=== PATIENT | male | born 1995 | race Caucasian/White ===

== ENCOUNTER 2017-10-03 21:46 | Emergency (ER) | payer SELFPAY ==
--- NOTE | 2017-10-03 21:55 | ER Report ---
History and Physical Time Seen By MD: 21:55 HPI/ROS CHIEF COMPLAINT: Fall with elbow injury HISTORY OF PRESENT ILLNESS: This is a 22-year-old male. He jumped over a railing about 10 feet up and landed with outstretched arm. He now has severe elbow pain on the left elbow with deformity. He also has abrasions on his right lower leg, left wrist, left forehead. Very slight scratches on the left elbow. No head injury or loss of consciousness. He has normal sensation in the hand and fingers. He can move the hand and fingers as well. REVIEW OF SYSTEMS: Constitutional: No weakness. Eyes: No visual changes or eye pain. ENT: No dental or oral trauma. Respiratory: No chest wall pain, no shortness of breath. Cardiac: No palpitations. Gastrointestinal: No abdominal pain, no vomiting. Musculoskeletal: As above. Skin: No lacerations. Neurological: No headache. Allergies: Coded Allergies: No Known Drug Allergies (Unverified , 10/03/17) Home Meds Active Scripts Hydrocodone Bit/Acetaminophen (HYDROCODON-ACETAMINOPHEN 5-325) 1 Each Tablet, 1 EACH PO Q4H Y for PAIN, #12 TAB 0 Refills Prov:VALERIE PASTOR MD 10/04/17 Reviewed Nurses Notes: Yes Constitutional Vital Sign - Last 24 Hours 10/03/17 10/03/17 10/03/17 10/03/17 21:46 21:51 21:57 22:01 Temp 98.0 Pulse ??? 71 63 Resp 16 B/P (MAP) 138/93 (108) 138/93 Pulse Ox 96 96 O2 Delivery Room Air 10/03/17 10/03/17 10/03/17 10/03/17 22:16 22:31 22:44 22:46 Pulse ??? 73 77 Resp 9 B/P (MAP) 159/90 (113) Pulse Ox 96 97 10/03/17 10/03/17 10/03/17 10/03/17 22:48 22:52 22:56 23:00 B/P (MAP) 158/104 (122) 155/88 (110) 156/99 (118) 176/103 (127) 10/03/17 10/03/17 10/03/17 10/03/17 23:01 23:04 23:08 23:12 Pulse 73 Resp 8 B/P (MAP) 164/103 (123) 158/93 (114) 169/102 (124) Pulse Ox 99 10/03/17 10/03/17 10/03/17 10/03/17 23:17 23:20 23:24 23:28 Pulse 81 Resp 12 B/P (MAP) 135/120 (125) 174/95 (121) 166/86 (112) Pulse Ox 98 10/03/17 10/03/17 10/03/17 10/03/17 23:32 23:36 23:40 23:44 Pulse 72 Resp 9 B/P (MAP) 172/90 (117) 152/98 (116) 155/94 (114) 172/106 (128) Pulse Ox 91 10/03/17 10/04/17 23:47 00:25 Temp 97.9 Pulse 70 Resp 10 Pulse Ox 97 Physical Exam Gen.: Alert, no acute distress. Musculoskeletal: Swelling and deformity over the left elbow. Holding the left upper extremity with his right arm to avoid any movement of the left extremity. He can move the hand and fingers without major problem. Pain with any movement of the elbow. No pain in the shoulder. Cardiovascular: Normal pulses in the wrist and normal capillary refill in the fingers. Neuro: Normal sensation. No defects of motor or sensory noted. Skin: Very mild scrapes on the elbow, no lacerations. Also has a abrasion to the left wrist, left forehead, the right lower extremities. Medical Decision Making EKG/Imaging Imaging ELBOW 3 VIEW LEFT COMPARISONS: None. ADDITIONAL PERTINENT HISTORY: Elbow pain FINDINGS: Osseous structures: There is a distracted fracture involving the left radial head. Comminuted fracture involving the proximal aspects of the left ulna including a fracture through the base of the olecranon. No evidence of fracture involving the distal aspects of the humerus. Joint spaces: Posterior dislocation about the left elbow. Surrounding soft tissues: Soft tissue swelling about the left elbow. IMPRESSION: 1. Comminuted proximal ulnar fracture with a fracture extending through the base of the olecranon. 2. Left radial head fracture. 3. Posterior dislocation about the left elbow. Report Dictated By: Fatuma Jean MD at 10/03/2017 10:47 PM WRIST LEFT 2 VIEW COMPARISONS: None. ADDITIONAL PERTINENT HISTORY: Left arm injury FINDINGS: Osseous structures: Negative. Joint spaces: Negative. Surrounding soft tissues: Negative. IMPRESSION: Normal views of the left wrist. Report Dictated By: Fatuma Jean MD at 10/03/2017 10:45 PM ELBOW 2 VIEW LEFT COMPARISONS: Views of the left elbow dated earlier same day. ADDITIONAL PERTINENT HISTORY: Post reduction films. FINDINGS: Osseous structures: Continued findings of a radial head fracture as well as a comminuted fracture involving the proximal aspects of the left ulna with a fracture extending through the base of the olecranon. Joint spaces: Improved positioning of the radial head in relation to the distal humerus but continued posterior dislocation about the left elbow. Surrounding soft tissues: Continued diffuse soft tissue swelling about the left elbow. IMPRESSION: 1. Continued findings of a fracture or dislocation about the left elbow with slight interval improvement in alignment from previous exam. 2. No new findings from previous exam. Report Dictated By: Fatuma Jean MD at 10/03/2017 11:20 PM ED Course/Re-evaluation Clinical Indication for ER IV: Hydration, IV Access ED Course Initially, we did x-rays to demonstrate the fracture and dislocation of the left elbow. This is a closed fracture. Attempted reduction under sedation as noted below. Reduction was incomplete. Improved position but not back to anatomic position. Splinted after the attempted reduction. Initially the patient 's neurovascular exam was intact. After splint application, the patient's fingers started to have some paresthesias in the fifth finger went numb with paresthesias in the fourth finger. He had capillary refill that continued to be intact. I called and spoke with orthopedic surgery, Dr. Colby and reviewed the case with him. After our discussion, he recommended that the patient needs to follow- up tomorrow for surgery. He does not do this surgery and recommended follow-up with or Dr. Anderson. However, Dr. Bacon is out of town and he was not sure if Dr. Anderson was here in town or at an outreach clinic. We could keep the splint on, treat pain, and have him follow-up tomorrow at [facility]. On further evaluation, the patient had worsening numbness and then could not move the fifth finger. Because of this worsening on evaluation after the splint , I elected to call [facility] because I was not sure if Dr. Anderson would be available based on my conversation with Dr. Colby. I called and spoke initially with Dr. Davalos on the trauma service, and then spoke with Dr. Tang, orthopedic surgery. He suggested removing the sugar tong splint to see if he could relieve some pressure from the ulnar nerve. If that did not help, then transferring the patient by private vehicle to the [facility] for surgery tomorrow. If the numbness improved, then the patient could follow-up as an outpatient later in the morning. I went and spoke with the patient after these calls. He said that the sensation and return to his fingers and he could move them now. We talked about removing part of the splint however he is comfortable with the way the splint is now and his exam now is normal neurovascularly. The patient will return home and we will provide pain control. He has the contact information for Dr. Anderson at [facility] as well as for Dr. Tang at [facility]. He is going to watch for any worsening of his sensation, motor function , or capillary refill, and we discussed this at length. Should he have any further problems, he will call us. He can return to the ER here or he can go to [facility] as well, I just asked if he would call me so if he was going to [facility] we could call them and let them know. Procedure Procedure: Procedural sedation. A pre-sedation evaluation was completed on the patient. Patient is an appropriate candidate for procedural sedation. The risks of the sedation were discussed with the patient. A time out was completed. The patient was reevaluated immediately prior to initiation of sedation. The patient was sedated with propofol. The patient was monitored with continuous pulse oximetry and awake overnight monitor. There were no complications and no significant hypoxemia. I remained at the bedside for the sedation. The total time I spent in the procedural sedation was 15 minutes. Post sedation evaluation: Patient was alert and cooperative, hemodynamically stable with appropriate respiratory status, temperature and pain control without ongoing nausea and vomiting. Procedure: Fracture and dislocation of the left elbow attempted reduction: The elbow was reduced and splinted with a posterior and sugar tong half cast. Post reduction the patient's neurovascular exam was initially normal and then showed some numbness and weakness, see above. Post reduction x-ray demonstrates some improvement towards anatomic position but was incomplete. The procedure was performed by myself. Decision to Disposition Date: Oct 04, 2017 Decision to Disposition Time: 00:10 Depart Departure Latest Vital Signs Vital Signs Date Time Temp Pulse Resp B/P (MAP) Pulse Ox O2 Delivery O2 Flow Rate FiO2 10/04/17 00:25 97.9 10/03/17 23:47 70 10 97 10/03/17 23:44 172/106 (128) 10/03/17 21:57 Room Air Impression: Primary Impression: Closed olecranon fracture Additional Impression: Radial head fracture, closed Condition: Improved Disposition: HOME OR SELF-CARE Referrals: FATUMA ANDERSON MD New Scripts Hydrocodone Bit/Acetaminophen (HYDROCODON-ACETAMINOPHEN 5-325) 1 Each Tablet 1 EACH PO Q4H Y for PAIN, #12 TAB 0 Refills Prov: VALERIE PASTOR MD 10/04/17 Patient Instructions: Elbow Fracture (ED) Additional Instructions: Your elbow was fractured and dislocated tonight. It will need to surgically repaired. Keep the arm in the sling and splint tonight. You can apply ice over the elbow every hour for about 10-15 minutes. Take Ibuprofen 200mg over the counter tablets, take 4 every 8 hours as needed for pain. Lortab 5/325, one every 4 hours as needed for severe pain. You can take both of these medicines together, no interactions. Keep the arm/elbow elevated tonight. Watch for numbness of the hand or fingers, inability to move the hand or fingers , or loss of blood flow into the fingers or fingertips. If you note any of these problems, please return to the ER for further treatment. You can follow-up with [facility] in the morning to see if Dr. Anderson is available. Alternatively you can call [facility] to follow-up with Dr. Tang. Their number is . Please let them know that you were seen in the ER tonight and that we spoke with the orthopedic surgeon hand stonecutter who indicated the need to follow-up on Saturday. Problem Qualifiers Primary Impression: Closed olecranon fracture Encounter type: initial encounter Laterality: left Qualified Codes: S52.022A - Displaced fracture of olecranon process without intraarticular extension of left ulna, initial encounter for closed fracture Additional Impression: Radial head fracture, closed Encounter type: initial encounter Fracture alignment: displaced Laterality : left Qualified Codes: S52.122A - Displaced fracture of head of left radius , initial encounter for closed fracture VALERIE PASTOR MD Oct 03, 2017 21:55
[2017-10-03] MEDS ORDERED: fentaNYL CITR 100 MCG/2 ML AMP IVP ONE ×2 (22:00→23:10)
[2017-10-03] MEDS ORDERED: PROPOFOL EMUL 10MG/ML 20 ML VL IVP ONE (22:30)
--- NOTE | 2017-10-03 22:49 | RADIOLOGY IMAGING REPORT ---
FAC[place] [facility] [place]IENT NAME: Srinivasa Gupta : 1995 MR: [id number] V: [id number] EXAM DATE: ORDERING PHYSICIAN: VALERIE PASTOR TECHNOLOGIST: Location: [facility] - [place] Patient: Srinivasa Gupta : 1995 Visit/Account:[id number] Date of Sevice: 10/03/2017 WRIST LEFT 2 VIEW COMPARISONS: None. ADDITIONAL PERTINENT HISTORY: Left arm injury FINDINGS: Osseous structures: Negative. Joint spaces: Negative. Surrounding soft tissues: Negative. IMPRESSION: Normal views of the left wrist. Report Dictated By: Dixon Jean MD at 10/03/2017 10:45 PM Report E-Signed By: Dixon Jean MD at 10/03/2017 10:46 PM WSN:[id number]
--- NOTE | 2017-10-03 22:52 | RADIOLOGY IMAGING REPORT ---
FACILITY: [facility] PATIENT NAME: Srinivasa Gupta : 1995 MR: [id number] V: [id number] EXAM DATE: ORDERING PHYSICIAN: VALERIE PASTOR TECHNOLOGIST: Location: [facility] - [place] Patient: Srinivasa Gupta : 1995 Visit/Account:[id number] Date of Sevice: 10/03/2017 ELBOW 3 VIEW LEFT COMPARISONS: None. ADDITIONAL PERTINENT HISTORY: Elbow pain FINDINGS: Osseous structures: There is a distracted fracture involving the left radial head. Comminuted fractur e involving the proximal aspects of the left ulna including a fracture through the base of the olecra non. No evidence of fracture involving the distal aspects of the humerus. Joint spaces: Posterior dislocation about the left elbow. Surrounding soft tissues: Soft tissue swelling about the left elbow. IMPRESSION: 1. Comminuted proximal ulnar fracture with a fracture extending through the base of the olecranon. 2. Left radial head fracture. 3. Posterior dislocation about the left elbow. Report Dictated By: Dixon Jean MD at 10/03/2017 10:47 PM Report E-Signed By: Dixon Jean MD at 10/03/2017 10:49 PM WSN:[id number]
--- NOTE | 2017-10-03 23:24 | RADIOLOGY IMAGING REPORT ---
FACILITY: [facility] PATIENT NAME: Srinivasa Gupta : 1995 MR: [id number] V: [id number] EXAM DATE: ORDERING PHYSICIAN: VALERIE PASTOR TECHNOLOGIST: Location: [facility] Patient: Srinivasa Gupta : 1995 Visit/Account:[id number] Date of Sevice: 10/03/2017 ELBOW 2 VIEW LEFT COMPARISONS: Views of the left elbow dated earlier same day. ADDITIONAL PERTINENT HISTORY: Post reduction films. FINDINGS: Osseous structures: Continued findings of a radial head fracture as well as a comminuted fracture inv olving the proximal aspects of the left ulna with a fracture extending through the base of the olecra non. Joint spaces: Improved positioning of the radial head in relation to the distal humerus but continued posterior dislocation about the left elbow. Surrounding soft tissues: Continued diffuse soft tissue swelling about the left elbow. IMPRESSION: 1. Continued findings of a fracture or dislocation about the left elbow with slight interval improvem ent in alignment from previous exam. 2. No new findings from previous exam. Report Dictated By: Dixon Jean MD at 10/03/2017 11:20 PM Report E-Signed By: Dixon Jean MD at 10/03/2017 11:22 PM WSN:[id number]
[2017-10-03 23:44] VITALS: BP 172/106
[2017-10-04] MEDS ORDERED: IBUPROFEN 800 MG TAB PO ONE (00:10)
[2017-10-04] MEDS ORDERED: ACET/HYDROC 5/325MG TH ER ONLY 2 TAB/BOTTLE PO ONE (00:10)
[2017-10-04] MEDS ORDERED: APAP/HYDROCODONE 325/5 TAB PO ONE (00:10)
[2017-10-04] MEDS ORDERED: LOR5/325 PO (00:17)
[2017-10-04] MEDS ORDERED: NS(*) 0.9% 1000 ML BAG 1,000 ML IV ONE (00:45)
== END 2017-10-04 00:15 | disposition home or self-care (01) ==
LOC: ER 21:55
DX: S52.022A Displaced fracture of olecranon process without intraarticular extension of left ulna, initial encounter for closed fracture (principal); S52.122A Displaced fracture of head of left radius, initial encounter for closed fracture
CPT/HCPCS: 24655; 73070; 73080; 73100; 96361; 96374; 96375; 96376; 99151; 99285; J2704; J3010; J7030; L3982